=== PATIENT | female | born 1990 | race Hispanic/Latino ===

== ENCOUNTER 2022-05-20 17:22 | Inpatient (IN) | payer OTHER ==
[~2022-05-20] VITALS: Ht 142.2 cm; Wt 78.5 kg
[2022-05-20] MEDS ORDERED: ONDANSETRON ODT 4MG TAB ONE (17:27)
[2022-05-20 17:41] LABS: HCG,QUALITATIVE URINE NEGATIVE (NEGATIVE)
[2022-05-20 17:44] LABS: APPEARANCE,URINE TURBID (CLEAR); BILIRUBIN,URINE NEGATIVE (NEGATIVE); COLOR,URINE RED (YELLOW); GLUCOSE, URINE (UA) NEGATIVE (NEGATIVE); KETONES,URINE 5 mg/dL (NEGATIVE); LEUKOCYTE ESTERASE ,URINE TRACE (NEGATIVE); NITRATE,URINE NEGATIVE (NEGATIVE); OCCULT BLOOD,URINE LARGE (NEGATIVE); PROTEIN,URINE 30 mg/dL (NEGATIVE); UROBILINOGEN,URINE 0.2 mg/dL (0.2-1.0)
[2022-05-20 17:48] LABS: RBC,URINE TNTC /HPF (0-1)
[2022-05-20 17:49] LABS: BACTERIA,URINE Rare /HPF (None Seen)
[2022-05-20 17:50] LABS: SQUAMOUS EPITHELIAL CELL,UR Rare /HPF (0-2)
[2022-05-20 17:58] LABS: BASOPHILS % (AUTO) 0.1 % (0.0-5.0); EOSINOPHILS % (AUTO) 0.1 % (0.0-8.0); HEMATOCRIT 39.8 % (36-48); LYMPHOCYTES % (AUTO) 8.2 % (21.0-51.0); MEAN CORPUSCULAR HEMOGLOBIN 27.7 pg (27.0-33.0); MEAN CORPUSCULAR HGB CONC 33.2 g/dL (32.0-36.0); MEAN CORPUSCULAR VOLUME 83.6 fL (79-99); MONOCYTES % (AUTO) 2.7 % (3.0-13.0); NEUTROPHILS % (AUTO) 88.6 % (40.0-77.0); PLATELET COUNT (AUTO) 350 K/uL (130-400); RED BLOOD CELL COUNT(AUTO) 4.76 MIL/uL (4.00-5.50); WHITE BLOOD COUNT (AUTO) 14.7 K/uL (4.8-10.8)
[2022-05-20 18:05] LABS: CREATININE 0.7 mg/dL (0.5-1.5); POTASSIUM 3.4 mmol/L (3.5-5.1)
[2022-05-20 18:10] LABS: ALBUMIN 3.9 g/dL (3.5-5.0); TOTAL PROTEIN, SERUM 7.9 g/dL (6.0-8.3)
[2022-05-20] MEDS ORDERED: DICYCLOMINE HCL 10 MG/5 ML ML PO ONE (18:30)
[2022-05-20] MEDS ORDERED: MAG/ALUM/SIMETH 30 ML UDCUP PO ONE (18:30)
[2022-05-20] MEDS ORDERED: LIDOCAINE HCL 2% VISCOUS 15 ML UDCUP PO ONE (18:30)
[2022-05-20] MEDS ORDERED: FAMOTIDINE 20MG VIAL IV ONE (18:30)
[2022-05-20] MEDS ORDERED: ZOSYN 3.375GM +NS 50ML IV ONE (19:00)
[2022-05-20] MEDS ORDERED: ACETAMINOPHEN 325 MG TAB PO PRN ×2 (22:30)
[2022-05-20] MEDS: MORPHINE 2 MG SYG IV PRN (22:45)
[2022-05-20] MEDS: ONDANSETRON 4MG INJ IV PRN (22:45)
[2022-05-20] MEDS: 0.9%NACL 1000ML 1,000 ML IV SCH (22:57)
[2022-05-21] VITALS (7 sets, daily range): BP systolic 93–133; BP diastolic 59–79
[2022-05-21] MEDS: MORPHINE 2 MG SYG IV PRN (01:58)
[2022-05-21] MEDS: ZOSYN 3.375GM+NS 50ML 50 ML IV SCH ×3 (04:23→21:23)
[2022-05-21 06:22] LABS: BASOPHILS % (AUTO) 0.1 % (0.0-5.0); EOSINOPHILS % (AUTO) 0.6 % (0.0-8.0); HEMATOCRIT 35.4 % (36-48); LYMPHOCYTES % (AUTO) 19.9 % (21.0-51.0); MEAN CORPUSCULAR HEMOGLOBIN 27.6 pg (27.0-33.0); MEAN CORPUSCULAR HGB CONC 32.8 g/dL (32.0-36.0); MEAN CORPUSCULAR VOLUME 84.3 fL (79-99); MONOCYTES % (AUTO) 7.5 % (3.0-13.0); NEUTROPHILS % (AUTO) 71.5 % (40.0-77.0); PLATELET COUNT (AUTO) 327 K/uL (130-400); RED CELL DISTRIBUTION WIDTH 13.2 % (11.0-15.5); WHITE BLOOD COUNT (AUTO) 15.1 K/uL (4.8-10.8)
[2022-05-21 07:39] LABS: ALBUMIN 3.1 g/dL (3.5-5.0); CREATININE 0.7 mg/dL (0.5-1.5); INR 0.95 (0.85-1.15); POTASSIUM 3.2 mmol/L (3.5-5.1); PROTHROMBIN TIME 10.4 SEC (9.6-11.6); TOTAL PROTEIN, SERUM 6.7 g/dL (6.0-8.3)
[2022-05-21 07:40] LABS: PARTIAL THROMBOPLASTIN TIME 34.4 SEC (26.3-35.5)
[2022-05-21 08:05] LABS: ERYTHROCYTE SEDIMENTATION RATE 60 MM/HR (0-20)
[2022-05-21] MEDS: FAMOTIDINE 20MG VIAL IV SCH ×2 (10:26→21:23)
[2022-05-21] MEDS: 0.9%NACL 1000ML 1,000 ML IV SCH ×2 (10:27→20:18)
[2022-05-21] MEDS ORDERED: DIATR MEGLU/DIATRIZOATE SODIUM 30 ML BOTTLE ONE (15:01)
[2022-05-21] MEDS ORDERED: IOHEXOL 350 MG/ML 100ML INFUS..BTL IV ONE (18:02)
[2022-05-22] VITALS (20 sets, daily range): BP systolic 93–135; BP diastolic 56–94
[2022-05-22 04:34] LABS: HEMATOCRIT 33.5 % (36-48); MEAN CORPUSCULAR HEMOGLOBIN 27.9 pg (27.0-33.0); MEAN CORPUSCULAR HGB CONC 32.5 g/dL (32.0-36.0); MEAN CORPUSCULAR VOLUME 85.7 fL (79-99); RED BLOOD CELL COUNT(AUTO) 3.91 MIL/uL (4.00-5.50); RED CELL DISTRIBUTION WIDTH 13.3 % (11.0-15.5); WHITE BLOOD COUNT (AUTO) 9.5 K/uL (4.8-10.8)
[2022-05-22 04:43] LABS: CREATININE 0.7 mg/dL (0.5-1.5); POTASSIUM 3.3 mmol/L (3.5-5.1)
[2022-05-22] MEDS: ZOSYN 3.375GM+NS 50ML 50 ML IV SCH ×3 (05:01→21:10)
[2022-05-22] MEDS: 0.9%NACL 1000ML 1,000 ML IV SCH (05:08)
[2022-05-22] MEDS: POTASSIUM CHLORIDE 20MEQ/100ML 100 ML IV PRN ×2 (07:29→10:41)
[2022-05-22] MEDS: LIDOCAINE HCL-MPF 1% 2ML VIAL IV PRN ×3 (07:29→10:41)
[2022-05-22] MEDS: FAMOTIDINE 20MG VIAL IV SCH ×2 (08:23→21:11)
[2022-05-22] MEDS ORDERED: MIDAZOLAM HCL 1 MG/ML 2ML VIAL ONE (12:11)
[2022-05-22] MEDS ORDERED: FENTANYL CITRATE PF 50 MCG/1 ML 2ML VIAL ONE ×2 (12:11→13:25)
[2022-05-22] MEDS ORDERED: PROPOFOL 10 MG/ML 20ML VIAL IV ONE (12:11)
[2022-05-22] MEDS ORDERED: GLYCOPYRROLATE 1 MG/5 ML SYRINGE ONE (12:53)
[2022-05-22] MEDS ORDERED: ROCURONIUM 10MG/1ML SYR 10 MG/ML ML ONE (12:53)
[2022-05-22] MEDS ORDERED: NEOSTIGMINE 5MG/5ML SYR IV ONE (12:53)
[2022-05-22] MEDS ORDERED: ONDANSETRON 4MG INJ ONE (13:22)
[2022-05-22] MEDS ORDERED: KETOROLAC 30MG VIAL (30MG/ML) ONE (13:23)
[2022-05-22] MEDS ORDERED: BUPIVACAINE/PF 0.25% 30ML VIAL IJ ONE (13:40)
[2022-05-22] MEDS ORDERED: LIDOCAINE HCL 1% 20 ML VIAL INJ ONE (13:45)
[2022-05-22] MEDS ORDERED: BUPIVACAINE/EPI/PF 0.25% 30ML VIAL IJ ONE (13:45)
[2022-05-22] MEDS ORDERED: MEPERIDINE-PF 25 MG/ML SYG ONE ×2 (14:38→14:50)
[2022-05-22] MEDS: ONDANSETRON 4MG INJ IV PRN (15:09)
[2022-05-22] MEDS: MORPHINE 2 MG SYG IV PRN (18:03)
[2022-05-22] MEDS: OXYCODONE/ACETAMIN 5/325MG TAB PO PRN (21:20)
[2022-05-23] MEDS: 0.9%NACL 1000ML 1,000 ML IV SCH ×2 (00:30→01:15)
[2022-05-23] MEDS: MORPHINE 2 MG SYG IV PRN (01:33)
[2022-05-23 02:56] VITALS: BP 101/66
[2022-05-23] MEDS: OXYCODONE/ACETAMIN 5/325MG TAB PO PRN ×2 (03:57→11:07)
[2022-05-23] MEDS: ZOSYN 3.375GM+NS 50ML 50 ML IV SCH (05:17)
[2022-05-23 05:39] LABS: HEMATOCRIT 33.9 % (36-48); MEAN CORPUSCULAR HEMOGLOBIN 27.9 pg (27.0-33.0); MEAN CORPUSCULAR VOLUME 84.5 fL (79-99); RED BLOOD CELL COUNT(AUTO) 4.01 MIL/uL (4.00-5.50); RED CELL DISTRIBUTION WIDTH 13.1 % (11.0-15.5); WHITE BLOOD COUNT (AUTO) 16.4 K/uL (4.8-10.8)
[2022-05-23 05:51] LABS: CREATININE 0.7 mg/dL (0.5-1.5); POTASSIUM 3.9 mmol/L (3.5-5.1)
[2022-05-23 08:04] VITALS: BP 118/80
[2022-05-23] MEDS: FAMOTIDINE 20MG VIAL IV SCH (09:53)
[2022-05-23] MEDS ORDERED: SIMETHICONE 80 MG TAB.CHEW PO PRN (11:00)
[2022-05-23] MEDS ORDERED: BISACODYL 10 MG SUPP.RECT RC PRN (11:00)
[2022-05-23 11:40] VITALS: BP 108/78
[2022-05-23] MEDS ORDERED: AMOX-426 PO (12:17)
== END 2022-05-23 15:20 | disposition home or self-care (01) | DRG 418 ==
LOC: EDH 17:22 → EDHIP 17:23 → 3AH 05-21 01:41 → WSH 05-21 12:00
PROVIDERS: ADMIT Hospitalist; ATTEND Hospitalist
PROC: 8E0W4CZ Robotic Assisted Procedure of Trunk Region, Percutaneous Endoscopic Approach (ICD-10-PCS; 2022-05-22)
PROC: 0FT44ZZ Resection of Gallbladder, Percutaneous Endoscopic Approach (ICD-10-PCS; principal; 2022-05-22 12:53)
DX: K80.00 Calculus of gallbladder with acute cholecystitis without obstruction (principal); N39.0 Urinary tract infection, site not specified; Z20.822 Contact with and (suspected) exposure to COVID-19; E66.9 Obesity, unspecified; Z68.38 Body mass index [BMI] 38.0-38.9, adult
CPT/HCPCS: 36415; 74178; 76705; 80048; 80053; 81001; 81025; 83690; 85025; 85027; 85610; 85651; 85730; 87635; 87804; C9803; G0378; J1885; J2175; J2250; J2405; J2543; J2704; J2710; J3010; J3480; J3490; J7030; Q9963; Q9967